=== PATIENT | male | born 1965 | race Caucasian/White ===

== ENCOUNTER → 2016-09-17 | Outpatient (CLI) | payer BC ==
--- NOTE | 2016-09-18 06:44 | CONS ---
PCP is Dr. Witt. A 51-year-old male patient coming in for obstructive sleep apnea evaluation. He snores loud, wakes up gasping for air on multiple occasions and he is feeling a loss of energy during the day. He is excessively fatigued and sleepy. He goes to bed around midnight, wakes up at 7 a.m. in the morning and on weekends he wakes up between 8 and 9 a.m. in the morning. His weight has been stable. His Hayden score is at 5. No sleep paralysis, no hallucinations , no cataplexy. He is obese, unable to lose weight. He is currently on Adipex. He takes also Zoloft for chronic anxiety/depression. PAST MEDICAL HISTORY: Obesity and anxiety/depression. SURGICAL HISTORY: None. Drug allergies are none. Medications include Adipex and Zoloft. SOCIAL HISTORY: Nonsmoker. No history of alcohol. No history of IV drugs. Family history is negative for sleep apnea. 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 REVIEW OF SYSTEMS: Twelve-point review of systems was done, positive findings were all mentioned above in the history of present illness. BP is 151/87, pulse is 104, respirations 16, temperature 98.1, saturation 95% on room air. Weight is 247. Height is 5 feet 10 inches. Neck size is 17-1/2 inches. GENERAL APPEARANCE: Calm, comfortable. HEENT: Mild tonsillar enlargement. There is no goiter or neck masses. LUNGS: Diminished breath sounds, otherwise, clear. HEART: Sounds regular rate and rhythm. Normal S1, S2. No S3, no S4. No murmurs. ABDOMEN: Soft, nontender, no organomegaly. EXTREMITIES: No edema, cyanosis or clubbing. IMPRESSION: 1. Obstructive sleep apnea suspected, currently under investigation. 2. Obesity on Adipex with a body mass index of 34.9. 3. Chronic fatigue and sleepiness. Hayden score is at 5. 4. Chronic anxiety/depression, on Zoloft. PLAN: 1. Home sleep study to investigate this patient further for sleep apnea. 2. Further recommendations are to follow based on the results of the home sleep study. Meanwhile the patient was asked to implement good sleep hygiene measures. Will continue to follow. [id number]
== END ==
LOC: SLEEP 15:46
PROVIDERS: ATTEND Internal Medicine Critical Care Medicine
DX: E66.9 Obesity, unspecified (principal); F41.9 Anxiety disorder, unspecified; F32.9 Major depressive disorder, single episode, unspecified; R53.82 Chronic fatigue, unspecified; Z68.34 Body mass index [BMI] 34.0-34.9, adult; Z79.899 Other long term (current) drug therapy
CPT/HCPCS: 99211